=== PATIENT | female | born 1985 | race African-American/Black ===

== ENCOUNTER → 2017-12-10 | Day surgery (SDC) | payer OTHER ==
[~2017-12-10] VITALS: Ht 167.6 cm; Wt 79.4 kg
--- NOTE | 2017-12-10 09:49 | Operative Report ---
Operative/Inv Procedure Report Surgery Date: 12/10/17 Name of Procedure: Open reduction internal fixation left bimalleolar ankle fracture Pre-Operative Diagnosis: Left trimalleolar ankle fracture Post-Operative Diagnosis: Same Estimated Blood Loss: less than 50ml Surgeon/Supervisor Fabrication: Kyaw Lee MD Anesthesia: laryngeal mask airway IV Fluids: See anesthesia record Implants: Arthrex distal fibular locking plate and Arthrex tight rope device and Arthrex 4.0 cannulated screws Drains: None Specimens: None Tourniquet: 95 minutes Complications: None Condition: Stable Operative Indication: Patient is a 32-year-old female who sustained a closed trimalleolar ankle fracture of the left ankle. This occurred after slip and fall attending 14 days ago. She was seen in the office and indicated for surgical fixation of the fracture. The posterior malleolar fracture fragment was not large enough to fix and a decision was made to proceed with open reduction internal fixation of the lateral malleolus and medial malleolus fractures. Risks and benefits of procedure discussed the patient detail in the office. Operative/Procedure Note Note: Once informed consent was obtained and the correct limb was identified the patient was brought to operating room placed on table supine position. After administration of general endotracheal anesthesia patient's left lower extremity had a thigh tourniquet placed, a bump was placed on the left hip and the left lower extremity is prepped and draped usual sterile fashion. To begin the procedure lateral incision was made for fixation of the lateral malleolus fracture and distal fibular fracture. Sharp dissection was carried down to skin and subcutaneous tissue with care to avoid neurovascular structures. Fracture site was identified and cleaned of any debris. Fracture reduction was performed with a reduction forcep and a lag screw was placed across the fracture site using standard AO technique. Next a distal fibular locking plate was chosen as a neutralization plate for the lateral fibula. This was placed on the lateral fibular and pinned in place and position was confirmed in the AP and lateral planes with fluoroscopy. The plate was then secured to the lateral fibula with locking screws and nonlocking screws were appropriate length with 3 screws proximal to the fracture site and 4 screws in the cluster hole on the distal fibular plate. Mortise and lateral views confirmed a positioning screw length. Next the Arthrex tight rope was placed. The mortise was widened and the talus was tilted so a tight rope was placed across the fibula and tibia to reduce the syndesmotic joint. A type rope was placed under fluoroscopic guidance in AP and lateral planes. Once tight rope was placed across the tibia was then deployed and tensioned using standard technique. X-rays confirmed placement of the button as well as position of the tight rope. Attention was then turned to the medial malleolar fracture. An incision was made directly over the fracture and sharp dissection was carried down through skin and subcutaneous tissue care to avoid the saphenous vein and nerve. The medial malleolar fracture was reduced using a dental pick and 24.0 cannulated screw guidewires were placed across the fracture site. Wire position was confirmed in the AP and lateral planes. 250 mm partially threaded screws were then placed across the fracture site over the guidewires without compensation. Excellent reduction was obtained with good compression of the fracture site. All wounds were irrigated and final images in the AP lateral mortise planes confirmed reduction of the fracture and good implant positioning. The wounds were closed in layers and the skin was closed josue. Sterile dressing and splint was applied and the patient was awakened taken recovery in stable condition.
--- NOTE | 2017-12-10 11:23 | RADIOLOGY REPORT ---
EXAMINATION: XR ANKLE, LEFT CLINICAL INFORMATION: Left ankle in operating room. COMPARISON: Prior CT scan of the left ankle performed 12/04/2017 TECHNIQUE: 7 intraoperative spot images obtained during open reduction internal fixation of left ankle fracture FINDINGS: These images demonstrate plate and screw fixation along the distal fibula with improved anatomic or near-anatomic alignment. Additional screws\E\hardware stabilizing tibia\E\medial malleolus fracture. Overall improved alignment appears anatomic or near-anatomic. The mortise appears restored. IMPRESSION: Intraoperative spot images during open reduction internal fixation of previously noted left ankle fracture
== END ==
LOC: STS 02:04
DX: S82.852A Displaced trimalleolar fracture of left lower leg, initial encounter for closed fracture (principal); W19.XXXA Unspecified fall, initial encounter
CPT/HCPCS: 36415; 73610-LT; C1713; J0131; J0690; J1630; J2250